=== PATIENT | male | born 1965 | race Caucasian/White ===

== ENCOUNTER 2020-02-12 17:03 | Emergency (ER) | payer OTHER ==
[2020-02-12] MEDS ORDERED: Lidocaine 2% 5 ML SDV INJECT ONE (17:23)
[2020-02-12] MEDS ORDERED: Cephalexin 250 MG Cap PO ONE (18:26)
--- NOTE | 2020-02-12 18:35 | EDM.PDOC ---
ED HPI GENERAL MEDICAL PROBLEM - General Chief Complaint: General Stated Complaint: RIGH HAND LACERATION Time Seen by Provider: 02/12/20 17:10 Source of Information: Reports: Patient History Limitations: Reports: No Limitations - History of Present Illness INITIAL COMMENTS - FREE TEXT/NARRATIVE: 54 old left hand dominant male presents to the emergency room for a laceration of his right thumb while harvesting this evening. He denies any numbness or tingling in the thumb. He has full active flexion at the IP and full extension at the IP joint. He has no limitation at the metacarpal joint. This is a dog ear type flap laceration overlying the palmar surface of the fat pad of the distal thumb. Onset: Today Onset Date: 02/12/20 Onset Time: 17:00 Duration: Minutes: Location: Reports: Upper Extremity, Right (right Thumb Millan fat pad of the distal end) Quality: Reports: Throbbing Severity: Moderate Improves with: Reports: Other (compression) Worsens with: Reports: None Associated Symptoms: Reports: No Other Symptoms Right Finger-Thumb Pain Score (Numeric/FACES): 6 - Related Data Allergies Allergy/AdvReac Type Severity Reaction Status Date / Time levofloxacin [From Levaquin] Allergy Rash Verified 02/12/20 17:19 Home Meds: Home Meds Escitalopram Oxalate 10 mg PO DAILY 02/12/20 [History] Finasteride 2.5 mg PO DAILY 02/12/20 [History] Omeprazole 20 mg PO DAILY 02/12/20 [History] Social & Family History - Tobacco Use Smoking Status *Q: Never Smoker - Caffeine Use Caffeine Use: Reports: Coffee, Soda - Alcohol Use Days Per Week of Alcohol Use: 2 Number of Drinks Per Day: 4 Total Drinks Per Week: 8 - Recreational Drug Use Recreational Drug Use: No ED ROS GENERAL - Review of Systems Review Of Systems: Comprehensive ROS is negative, except as noted in HPI. ED EXAM, GENERAL - Physical Exam Exam: See Below Exam Limited By: No Limitations General Appearance: Alert, WD/WN, No Apparent Distress Ears: Hearing Grossly Normal Nose: Normal Inspection Throat/Mouth: Normal Inspection Head: Atraumatic Neck: Normal Inspection Respiratory/Chest: No Respiratory Distress Back Exam: Normal Inspection Extremities: Normal Inspection, Other (Right thumb laceration palmar surface fat pad distal thumb. No exposure of bone or tendon. Profundus tendon is intact extensor tendon intact. Sensation intact distal fingertip. This is a dogear type laceration.) Neurological: Alert, Oriented ED GENERAL MEDICAL PROCEDURES - Laceration/Wound Repair Right Distal Digit - 1st (Thumb) Lac/wound length in cm: 2.5 Appearance: Subcutaneous Distal NVT: Neuro & Vascular Intact Anesthetic Type: Digital Local Anesthesia - Lidocaine (Xylocaine): 2% Plain Local Anesthetic Volume: Other (10cc) Skin Prep: Chlorhexidine (Hibiciens), Providone-Iodine (Betadine), Saline, Sterile Drape Saline irrigation (cc's): 20 Exploration/Debridement/Repair: Wound Explored, Minimal Debridement Closed with: Sutures Suture Size: 4-0 # of Sutures: 7 Suture Type: Nylon, Simple, Mattress Drain Placement: No Sterile Dressing Applied: Provider Tetanus Status Addressed: Yes Complications: No Course - Vital Signs Last Recorded V/S: Last Vital Signs Temp 97.7 F 02/12/20 17:13 Pulse 94 02/12/20 17:13 Resp 18 02/12/20 17:13 BP 147/103 H 02/12/20 17:13 Pulse Ox 96 02/12/20 17:13 - Orders/Labs/Meds Meds: Medications Discontinued Medications Generic Name Dose Route Start Last Admin Trade Name Freq PRN Reason Stop Dose Admin Cephalexin 1,000 mg 02/12/20 18:26 Keflex PO 02/12/20 18:27 ONETIME ONE Lidocaine 10 ml 02/12/20 17:23 Xylocaine-Mpf 2% INJECT 02/12/20 17:24 ONETIME ONE - Re-Assessments/Exams Free Text/Narrative Re-Assessment/Exam: 02/12/20 18:37 Digital block using 2% lidocaine total of 10 cc the right thumb. She tolerated anesthetic well after adequate anesthetic was applied thumb fingers and entire hand were prepped in usual sterile fashion up to the wrist sterile drapes were applied. The laceration was irrigated with 20 cc of normal saline and peroxide mix. Wound was closed using 4-0 nylon for the flap type dog ear laceration. Once wound was closed the hand was cleaned, Xeroform was placed over the incision and a Tubigrip gauze was used for dressing. Departure - Departure Time of Disposition: 18:42 Disposition: Home, Self-Care 01 Condition: Good Clinical Impression: Laceration of thumb Qualifiers: Encounter type: initial encounter Damage to nail status: without damage Foreign body presence: without foreign body Laterality: right Qualified Code(s): S61.011A - Laceration without foreign body of right thumb without damage to nail, initial encounter - Discharge Information Instructions: Laceration Care, Adult Forms: ED Department Discharge Sepsis Event Note (ED) - Evaluation Sepsis Screening Result: No Definite Risk - Focused Exam Vital Signs: Vital Signs Temp Pulse Resp BP Pulse Ox 02/12/20 17:13 97.7 F 94 18 147/103 H 96 - Assessment/Plan Assessment:: Thumb laceration right Plan: 1. Dressing change in 72 hours. 2. Cover incision with a Band-Aid after the first dressing. 3. Keep the incision clean and dry. 4. Keflex 500 mg 3 times daily for 3 days flaccid coverage antibiotic. 5. Suture removal in 10 to 14 days with primary care.
== END 2020-02-12 18:30 | disposition home or self-care (01) ==
LOC: KA.ED 17:03
DX: S61.011A Laceration without foreign body of right thumb without damage to nail, initial encounter (principal); Z88.1 Allergy status to other antibiotic agents; Z79.899 Other long term (current) drug therapy; W26.8XXA Contact with other sharp object(s), not elsewhere classified, initial encounter
CPT/HCPCS: 12001; 99282; 99283; A9270; J2001